=== PATIENT | male | born 1990 | race Caucasian/White ===

== ENCOUNTER 2018-03-16 15:38 | Emergency (ER) | payer OTHER, SELFPAY ==
[2018-03-16 15:39] VITALS: BP 127/84; PULSE 72; RESP 16; TEMP 36; BMI 24.4
--- NOTE | 2018-03-16 16:06 | ED.DEP ---
ED Disposition - Plan for ED Patient: Chief Complaint: Laceration Instructions: ED Laceration All Referrals: Floyd Mo MD [Primary Care Provider] -
--- NOTE | 2018-03-16 16:07 | ED.VISSUMM ---
- ER Visit Summary Date of Service: 03/16/18 Chief Complaint: Right index finger laceration History of Present Illness: The patient is a 28 M presenting with laceration to right index finger. Patient was vito and cut his right index finger on a piece of steel. He states this was not workers comp related. He is right-handed. His tetanus is up-to-date. No other injuries. Physical Examination: Vitals are stable. Patient is afebrile. Alert no acute distress. HEENT exam is unremarkable. Neck is supple. Lungs are clear and equal bilaterally. Heart is regular rate and rhythm. Extremities 2 cm laceration volar right index finger, tendon function is normal, normal cap refill, normal sensation. Skin is warm and dry. No focal neurologic deficit. Remainder of exam is unremarkable. Emergency Department Course and Treatment: Laceration is repaired under sterile condition. Anesthetized with lidocaine, irrigated with saline. 4, 5-0 simple sutures were placed. Patient tolerated this well. Advised wound care instructions. Advised return to ED if worsening complaints. Disposition: Discharge home Impression: Right index finger laceration, laceration repair This note was generated with [employer] dictation software. It may contain incorrect words, spelling, and punctuation that were not noted in review of the chart prior to signing ED Disposition - Plan for ED Patient: Disposition: Home or Assisted Living Chief Complaint: Laceration Instructions: ED Laceration All Referrals: Floyd Mo MD [Primary Care Provider] -
--- NOTE | 2018-03-16 16:10 | ED.DCSUM_ITS ---
- ER Visit Summary Date of Service: 03/16/18 Chief Complaint: Right index finger laceration History of Present Illness: The patient is a 28 M presenting with laceration to right index finger. Patient was vito and cut his right index finger on a piece of steel. He states this was not workers comp related. He is right- handed. His tetanus is up-to-date. No other injuries. Physical Examination: Vitals are stable. Patient is afebrile. Alert no acute distress. HEENT exam is unremarkable. Neck is supple. Lungs are clear and equal bilaterally. Heart is regular rate and rhythm. Extremities 2 cm laceration volar right index finger, tendon function is normal, normal cap refill, normal sensation. Skin is warm and dry. No focal neurologic deficit. Remainder of exam is unremarkable. Emergency Department Course and Treatment: Laceration is repaired under sterile condition. Anesthetized with lidocaine, irrigated with saline. 4, 5-0 simple sutures were placed. Patient tolerated this well. Advised wound care instructions. Advised return to ED if worsening complaints. Disposition: Discharge home Impression: Right index finger laceration, laceration repair This note was generated with [employer] dictation software. It may contain incorrect words, spelling, and punctuation that were not noted in review of the chart prior to signing ED Disposition - Plan for ED Patient: Disposition: Home or Assisted Living Chief Complaint: Laceration Instructions: ED Laceration All Referrals: Floyd Mo MD [Primary Care Provider] -
[2018-03-16 16:18] VITALS: BP 125/84; PULSE 72; RESP 15; O2SAT 100
== END 2018-03-16 16:19 | disposition home or self-care (01) ==
LOC: ED 16:05
PROVIDERS: Emergency Provider Emergency Medicine; Family Provider Family Medicine; PCP Family Medicine
DX: S61.210A Laceration without foreign body of right index finger without damage to nail, initial encounter (principal); W26.8XXA Contact with other sharp object(s), not elsewhere classified, initial encounter; Y93.9 Activity, unspecified; Y92.9 Unspecified place or not applicable
CPT/HCPCS: 12001; 99283